=== PATIENT | male | born 1955 | race Caucasian/White ===

== ENCOUNTER 2017-04-15 20:18 | Emergency (ER) | payer BC ==
[2017-04-15 21:52] LABS: BASOPHILS 0.1 % (0-2); EOSINOPHILS 0.8 % (0-7); HEMATOCRIT 41.5 % (42.0-54.0); HEMOGLOBIN 14.2 g/dL (13.5-17.5); IMMATURE GRANULOCYTES 0.3 % (0-5); MCH 31.1 pg (26.0-34.0); MCHC 34.2 g/dL (31.0-37.0); MCV 90.8 fL (80.0-100.0); MEAN PLATELET VOLUME 10.2 fL (7.4-10.4); NEUTROPHILS 80.8 % (40-80); PLATELET COUNT 315 10x3/uL (130-400); RBC 4.57 10x6/uL (4.20-6.10); RDW 13.9 % (11.5-14.5); WBC 9.5 10x3/uL (4.8-10.8)
[2017-04-15 22:10] LABS: ALBUMIN 3.7 g/dL (3.4-5.0); ANION GAP 11.5 mmol/L (8-16); BILIRUBIN - TOTAL 0.44 mg/dL (0.2-1.3); CALCIUM 9.3 mg/dL (8.5-10.1); CARBON DIOXIDE 29.7 mmol/L (21.0-32.0); CREATININE - SERUM 1.1 mg/dL (0.6-1.3); POTASSIUM - SERUM 4.2 mmol/L (3.5-5.1); PROTEIN - SERUM 7.1 g/dL (6.4-8.2)
[2017-04-15 22:20] LABS: APPEARANCE CLEAR (CLEAR); COLOR YELLOW (YELLOW); GLUCOSE 1000 mg/dL (NEGATIVE); LEUKOCYTE ESTERASE NEGATIVE (NEGATIVE); NITRITE NEGATIVE (NEGATIVE); PROTEIN NEGATIVE (NEGATIVE); SPECIFIC GRAVITY 1.015 (1.005-1.020)
[2017-04-15 22:21] LABS: BILIRUBIN NEGATIVE (NEGATIVE); KETONE SMALL mg/dL (NEGATIVE); UROBILINOGEN NORMAL (NORMAL)
== END 2017-04-16 | disposition home or self-care (01) ==
LOC: D.ER 20:18
PROVIDERS: Physician Assistant Medical
DX: S40.011A Contusion of right shoulder, initial encounter (principal); W11.XXXA Fall on and from ladder, initial encounter; Y93.89 Activity, other specified; Y92.019 Unspecified place in single-family (private) house as the place of occurrence of the external cause; S42.401A Unspecified fracture of lower end of right humerus, initial encounter for closed fracture; I10 Essential (primary) hypertension; E11.9 Type 2 diabetes mellitus without complications

== ENCOUNTER 2020-12-27 05:28 | Inpatient (IN) | payer MEDICAID ==
[2020-12-24 15:20] LABS: BASOPHILS 0.9 % (0-2); HEMATOCRIT 42.8 % (42.0-54.0); HEMOGLOBIN 14.4 g/dL (13.5-17.5); LYMPHOCYTES 18.1 % (15-50); MCH 29.8 pg (26.0-34.0); MCHC 33.6 g/dL (31.0-37.0); MCV 88.6 fL (80.0-100.0); MEAN PLATELET VOLUME 8.2 fL (7.4-10.4); MONOCYTES 7.1 % (2-11); NEUTROPHILS 71.9 % (40-80); PLATELET COUNT 347 10x3/uL (130-400); RBC 4.82 10x6/uL (4.20-6.10); RDW 13.9 % (11.5-14.5); WBC 7.9 10x3/uL (4.8-10.8)
[2020-12-24 15:39] LABS: CALC OSMOLALITY 281 mosm/kg (275-300); CALCIUM 9.3 mg/dL (8.5-10.1); CARBON DIOXIDE 29.8 mmol/L (21.0-32.0); CHLORIDE - SERUM 102 mmol/L (98-107); CREATININE - SERUM 0.9 mg/dL (0.6-1.3); POTASSIUM - SERUM 4.5 mmol/L (3.5-5.1); SODIUM 139 mmol/L (136-145); UREA NITROGEN 26 mg/dL (7-18); eGFR NON AFRICAN AMERICAN > 90 mL/min (90-120)
[2020-12-24 15:40] LABS: GLUCOSE 83 mg/dL (74-106)
[~2020-12-27] VITALS: Ht 185.4 cm; Wt 85.6 kg
[2020-12-27] VITALS (13 sets, daily range): BP systolic 99–129; BP diastolic 47–74; Ht 185.4 cm; Wt 85.6 kg
--- NOTE | ~2020-12-27 | OP ---
PATIENT NAME: CYRUS REYNOLDS MEDICAL RECORD: [id number] LOCATION:D.M3 D.1207 ADMISSION DATE:12/27/20 SURGEON: JAYJAY WALLIS MD DATE OF OPERATION: 12/27/2020 PREOPERATIVE DIAGNOSIS: Lumbar spinal stenosis with severe foraminal stenosis and right L3 and L4 radiculopathy secondary to synovial cyst formation and lumbar spinal stenosis. POSTOPERATIVE DIAGNOSIS: Lumbar spinal stenosis with severe foraminal stenosis and right L3 and L4 radiculopathy secondary to synovial cyst formation and lumbar spinal stenosis. PROCEDURE: Lumbar laminectomy, medial facetectomy and foraminotomy with microdissection for removal of synovial cyst L3-L4 on the right. SURGEON: Jayjay Wallis MD DESCRIPTION AND TECHNIQUE: After induction of general endotracheal anesthesia, the patient was rolled prone on a Luis frame. Lumbar spine was prepped and draped in usual sterile fashion. Fluoroscopic x-ray and spinal needle localized the L3-L4 interspace on the right side. After infiltration of 1:100,000 epinephrine with 1% lidocaine, a stab incision was created at the L3-L4 interspace on the right. Series of dilators was used to advance The [employer] retractor to the L3-L4 interspace on the right side. Levels confirmed with fluoroscopic x-ray. A microscope and Midas Brian drill were used to perform a laminectomy, medial facetectomy and foraminotomy L3-L4 on the right. Hypertrophied ligamentum flavum was removed with Cloward rongeurs. The process of removing ligamentum flavum, there is an obvious synovial cyst formation within the ligament, which was adherent to the dura. This was carefully dissected away from the dura and into the microscope. Following this, the L3 and L4 nerve roots were decompressed as well. Meticulous hemostasis was maintained throughout the wound. The wound was irrigated with copious amounts of lukewarm saline irrigant solution. The retractor was removed. The fascia was closed with 2-0 Vicryl suture. Subdermal layer was closed with 3-0 Vicryl suture. The skin was closed with jennifer. A sterile dressing was applied to the wound. The patient was awakened in good condition and taken to recovery. All counts were reported as correct. Estimated blood loss was minimal. TRANSINT:[id number] Voice Confirmation ID: [id number] DOCUMENT ID: [id number] JAYJAY WALLIS MD CC: [id number] DICTATION DATE: 01/04/21 1135 ORTHOTICS PROSTHETICS ASSISTANT: 01/04/21 1154 DIS IN 12/28/20 [place] [id number] [facility]
[~2020-12-27 05:28] MED LIST: GLUCOPHAGE1000 MG PO; INVOKANA100 MG PO; LINZESS72 MCG PO; LISINOPRIL10 MG PO; NAPROXEN250 MG PO; PRAVASTATIN SOD10 MG PO; TRESIBA FL100 UNIT/1 SC; XALATAN 0.0052.5 ML EACH EYE
[2020-12-27] MEDS ORDERED: INVOKANA300 MG PO (06:08)
[2020-12-27] MEDS ORDERED: MEDROL DOSE PACK4 MG PO (09:07)
[2020-12-27] MEDS ORDERED: HYDROCODON-ACE1 EA10 PO (09:07)
--- NOTE | 2020-12-27 09:47 | NUR ---
0859 - BG CHECK UPON ARRIVAL TO PACU WAS 151. BEKAH MOORE NOTIFIED. NO ORDERS RECEIVED
--- NOTE | 2020-12-27 09:53 | NUR ---
0962 - CALLED DR. WALLIS ON CELL TO REPORT NEW ONSET OF TINGLING IN TOES ON RIGHT FOOT. NO ANSWER. VOICEMAIL LEFT TO RETURN CALL
--- NOTE | 2020-12-27 10:00 | NUR ---
1000 - PATIENT TRANSFERED TO [facility] WITH VITAL SIGNS STABLE
--- NOTE | 2020-12-27 10:10 | NUR ---
PT IN ROOM. IV THERAPY TO RFA. DIME SIZED DRAINING ON BORDER GAUZE DRESSING ON LOWER BACK. SCD'S ON. PT STATES HE IS DIABETIC SO HE DOESN'T WANT A POPSICLE. TOLERATING WATER. CL IN REACH. BED ALARM ON. UNDERSTANDS HE IS ON BEDREST UNTIL 1220 WITH LOG ROLLS AND 1420 TO SIT ON SIDE OF BED. , SON, AND SR. DIRECTOR IN ROOM AFTER SURGERY. SR. DIRECTOR HAS LEFT. SON VANCE WILL LEAVE WELL.
--- NOTE | 2020-12-27 11:30 | NUR ---
TOLERATED VANILLA PUDDING TO ADVANCE DIET. NO N/V. NO TROUBLE SWALLOWING. WILL CONTINUE TO ADVANCE TOLERATED.
--- NOTE | 2020-12-27 12:32 | NUR ---
TOLERATED PUDDING. NO N/V. NO TROUBLE SWALLOWING. ASKS WHY HE HAS SOME SCRATCHES ON HIS FACE. I STATED THAT IT COULD POSSIBLY BE FROM THE ADHESIVE ON THE PADS HOLDING THE BREATHING TUBE IN PLACE DURING SURGERY. PT VOICES UNDERSTANDING. AND STATES "THAT IS WHY HIS THROAT IS SORE THEN." I VOICED AGREEMENT AND STATED THAT WAS WHY I OFFERED A POPSICLE TO EASE THE STRAIN ON YOUR THROAT. CL IN REACH. BED ALARM ON. FAMILY IN ROOM. WCTM
--- NOTE | 2020-12-27 16:24 | NUR ---
PT RESTING. STATES PAIN IS A 3 OUT OF 10. STATED HE WOULD LET ME KNOW IF PAIN GETS TO A 5 TO TREAT. FAMILY IN ROOM. CL IN REACH. BED ALARM ON. SCD ON. WCTM
--- NOTE | 2020-12-27 18:53 | NUR ---
PATIENT RESTING IN BED WITH NO S/S OF DISTRESS. PATIENT DENIES NEEDS AT THIS TIME. IV INFUSING TO LEFT FA, NO SWELLING, REDNESS, OR PAIN NOTED. BED IN LOWEST POSITION AND CALL LIGHT IN REACH. ENCOURAGED PATIENT TO CALL WITH NEEDS.
--- NOTE | 2020-12-27 20:46 | NUR ---
ADMINISTERED MEDS PER ORDERS. PATIENT DEMETRIO WELL. ENCOURAGED TO CALL WITH NEEDS.
[2020-12-28 00:14] VITALS: BP 101/33
[2020-12-28 04:47] VITALS: BP 100/36
--- NOTE | 2020-12-28 07:35 | NUR ---
PT SITTING UP AWAKE AND ALERT IN BED. COFFEE PROVIDED. PT STATES THERE IS A TOTAL AMOUNT OF PAIN AT THE INCISION LEVEL 4 OUT OF 10 ON THE PAIN SCALE. CL IN REACH. SCD'S ON. WCTM
[2020-12-28 07:55] VITALS: BP 96/45
[2020-12-28 11:53] VITALS: BP 104/44
--- NOTE | 2020-12-28 14:11 | NUR ---
IV THERAPY REMOVED FROM LEFT FOREARM WITH TIP INTACT. DISCHARGE INSTRUCTIONS GIVEN. PT VERBALIZED UNDERSTANDING. WHEELLED TO EXIT BY WILMER FRANKLIN.
== END 2020-12-28 14:10 | disposition home or self-care (01) | DRG 517 ==
LOC: D.OPS 05:28 → D.M3 10:07 → D.OPS 13:38 → D.M3 12-28 14:10
PROVIDERS: Anesthesiology; ADMIT Neurological Surgery; ATTEND Neurological Surgery
PROC: 01NB0ZZ Release Lumbar Nerve, Open Approach (ICD-10-PCS; principal; 2020-12-27 07:00)
DX: M48.062 Spinal stenosis, lumbar region with neurogenic claudication (principal); M71.38 Other bursal cyst, other site; E78.2 Mixed hyperlipidemia; E11.40 Type 2 diabetes mellitus with diabetic neuropathy, unspecified; M54.16 Radiculopathy, lumbar region; Z79.84 Long term (current) use of oral hypoglycemic drugs